=== PATIENT | female | born 1950 | race Caucasian/White ===

== ENCOUNTER 2021-03-11 10:22 | Emergency (ER) | payer OTHER, SELFPAY ==
[~2021-03-11] VITALS: Ht 157.5 cm; Wt 70.3 kg
[2021-03-11 10:25] VITALS: BP_SYST 169
--- NOTE | 2021-03-11 10:25 | NUR ---
Pt to bed 4 for evaluation.
--- NOTE | 2021-03-11 10:30 | NUR ---
Pt AAO and ambulatory reporting intermittent right sided chest wall discomfort X one month. Pt reports that it continues to get worse and she describes it as a "jolt." Pt reports that she has no pain currently and denies any type of injury or trauma. Pt has history of diabetes only.
--- NOTE | 2021-03-11 10:48 | NUR ---
Dr Geiger at bedside to assess patient
[2021-03-11] MEDS ORDERED: IBUPROFEN 600 MG TABLET PO ONE (11:00)
--- NOTE | 2021-03-11 11:02 | NUR ---
CXR being done at bedside
[2021-03-11 11:22] LABS: EOSINOPHILS # (AUTO) 0.1 K/uL (0.0-0.4); EOSINOPHILS % (AUTO) 1.3 % (0.0-4.0); HEMATOCRIT 39.2 % (36-48); HEMOGLOBIN 13.3 g/dL (12.0-16.0); LYMPHOCYTES # (AUTO) 2.6 K/uL (1.0-5.5); MEAN CORPUSCULAR HEMOGLOBIN 29 pg (27-31); MEAN CORPUSCULAR HGB CONC 34 % (32-36); MEAN CORPUSCULAR VOLUME 86 fL (79.0-98.0); MONOCYTES # (AUTO) 0.2 K/uL (0.0-1.0); MONOCYTES % (AUTO) 4.6 % (1.7-9.3); PLATELET COUNT (AUTO) 458 K/uL (130-430); RED BLOOD CELL COUNT(AUTO) 4.58 MIL/uL (4.2-6.2); RED CELL DISTRIBUTION WIDTH 13.3 % (9.0-15.0); WHITE BLOOD COUNT (AUTO) 5.2 K/uL (4.8-10.8)
[2021-03-11 11:25] LABS: BASOPHILS % (AUTO) 0.2 % (0.0-2.0); NEUTROPHILS # (AUTO) 2.3 K/uL (1.8-7.7)
[2021-03-11 11:26] LABS: LYMPHOCYTES % (AUTO) 50.5 % (20.5-51.5); NEUTROPHILS % (AUTO) 43.4 % (40.0-70.0)
[2021-03-11 11:31] LABS: CALCIUM 9.2 mg/dL (8.4-11.0); CREATININE 0.68 mg/dL (0.55-1.30); POTASSIUM 4.8 mmol/L (3.5-5.1)
[2021-03-11 11:40] LABS: ALBUMIN 3.9 g/dL (3.4-4.8); TOTAL BILIRUBIN 0.3 mg/dL (0.0-1.0)
--- NOTE | 2021-03-11 13:09 | NUR ---
Pt resting in bed; in NAD. Pt reports "feeling better" after Motrin. Awaiting repeat troponin. Pt aware of what she is waiting for; understanding verbalized.
--- NOTE | 2021-03-11 13:14 | NUR ---
Report given to Baldomero LOPEZ to assume care of patient
[2021-03-11] MEDS ORDERED: LIDO1ADH22 TP (14:12)
--- NOTE | 2021-03-11 15:30 | NUR ---
Pt resting quietly in no distress awaiting disposition.
--- NOTE | 2021-03-11 17:00 | NUR ---
Pt V/S stable in no distress.
[2021-03-11 19:06] VITALS: BP_SYST 169
--- NOTE | 2021-03-11 19:06 | NUR ---
Patient given written and verbal discharge instructions and verbalizes understanding. DR. CRUZ HERCULES MD discussed with patient the results and treatment provided. Patient in stable condition. ID arm band removed. IV catheter removed intact and dressing applied, no active bleeding. Patient educated on pain management and to follow up with PMD. Pain Scale 0/10. Opportunity for questions provided and answered. Medication side effect fact sheet provided.
== END 2021-03-11 19:06 | disposition home or self-care (01) ==
LOC: SED 10:22
DX: S29.011A Strain of muscle and tendon of front wall of thorax, initial encounter (principal); X50.0XXA Overexertion from strenuous movement or load, initial encounter; I10 Essential (primary) hypertension; E11.65 Type 2 diabetes mellitus with hyperglycemia; Y93.9 Activity, unspecified; Y92.9 Unspecified place or not applicable; Y99.9 Unspecified external cause status
CPT/HCPCS: 36415; 71045; 80053; 82550; 84484; 85025; 93005; 99285